=== PATIENT | male | born 1990 ===

== ENCOUNTER 2016-02-19 13:30 | Emergency (ER) | payer OTHER ==
--- NOTE | 2016-02-19 14:14 | UC ---
Skin Complaint HPI - HPI Summary HPI Summary: painful red rash with small blisters around right side of chest wall- - History of Current Complaint Chief Complaint: UCRash Time Seen by Provider: 02/19/16 14:03 Stated Complaint: RASH Hx Obtained From: Patient Onset/Duration: Sudden Onset, Lasting Days - 2, Still Present Timing: Constant Onset Severity: Mild Current Severity: Mild Pain Intensity: 1 Pain Scale Used: 0-10 Numeric Location: Discrete - right anterior chest wall in a band shape at lower ribs Aggravating: Nothing Alleviating: Nothing Associated Signs & Symptoms: Positive: Rash - Allergy/Home Medications Allergies/Adverse Reactions: Allergies Allergy/AdvReac Type Severity Reaction Status Date / Time No Known Allergies Allergy Verified 02/19/16 13:48 Review of Systems Constitutional: Negative Skin: Rash Eyes: Negative ENT: Negative Respiratory: Negative Cardiovascular: Negative Gastrointestinal: Negative Genitourinary: Negative Motor: Negative Neurovascular: Negative Musculoskeletal: Negative Neurological: Negative Psychological: Negative All Other Systems Reviewed And Are Negative: Yes PMH/Surg Hx/FS Hx/Imm Hx Previously Healthy: Yes - Surgical History Surgical History: None - Family History Family History: denies cardio vascular issues in family lineage - Social History Occupation: Employed Full-time Lives: With Family Alcohol Use: None Substance Use Type: None Smoking Status (MU): Former Smoker Physical Exam Triage Information Reviewed: Yes Appearance: Well-Appearing, No Pain Distress, Well-Nourished Vital Signs: Initial Vital Signs Temp 97.6 F 02/19/16 13:49 Pulse 59 02/19/16 13:49 Resp 16 02/19/16 13:49 BP 129/86 02/19/16 13:49 Pulse Ox 100 02/19/16 13:49 Vital Signs Reviewed: Yes Eye Exam: Normal Eyes: Positive: Conjunctiva Clear ENT Exam: Normal ENT: Positive: Normal ENT inspection, Hearing grossly normal. Negative: Nasal congestion, Nasal drainage, Trismus, Muffled/hoarse voice Neck exam: Normal Neck: Positive: Supple, Nontender, No Lymphadenopathy Respiratory Exam: Normal Respiratory: Positive: Chest non-tender, Lungs clear, Normal breath sounds, No respiratory distress, No accessory muscle use Cardiovascular Exam: Normal Cardiovascular: Positive: RRR, No Murmur, Pulses Normal, Brisk Capillary Refill Musculoskeletal Exam: Normal Musculoskeletal: Positive: Strength Intact, ROM Intact, No Edema Neurological Exam: Normal Neurological: Positive: Alert Psychological Exam: Normal Psychological: Positive: Normal Response To Family Skin: Positive: rashes - right side of rib anterior band Course/Dx - Course Course Of Treatment: swab for HSV/VZD, valcyclovir, soap and water wash, tylenol /ibuprofen follow with pcp - Differential Diagnoses - Skin Complaint Differential Diagnoses: Cellulitis, Contact Dermatitis, Impetigo, Urticaria, Varicella Zoster, Viral Exanthem - Diagnoses Provider Diagnoses: Murray Milian right anterior chest wall Discharge - Discharge Plan Condition: Stable Disposition: HOME Prescriptions: ValACYclovir (*) [Valtrex 1 GM(*)] 1 gm PO TID #21 tab Patient Education Materials: Valacyclovir (By mouth), Shingles (ED) Referrals: Nicholas Westbrook MD [Primary Care Provider] - If Needed
[2016-02-22 19:40] LABS: HS/VZ Source CHEST; Varicella Zoster Result Positive (Negative); Varicella Zoster Source CHEST
== END 2016-02-19 14:16 | disposition home or self-care (01) ==
LOC: UCEAST 13:30
DX: B02.9 Zoster without complications (principal); Z87.891 Personal history of nicotine dependence
CPT/HCPCS: 87529; 87798; 99202; G0463